=== PATIENT | female | born 1990 | race Caucasian/White ===

== ENCOUNTER 2018-05-09 12:29 | Observation (INO) | payer OTHER ==
[2018-05-09] MEDS: ONDANSETRON 4 MG INJ IV ×3 (13:24→22:38)
[2018-05-09] MEDS: HYDROmorphONE 0.5 MG/0.5 ML SYG IV ×5 (13:24→23:45)
[2018-05-09] MEDS: SOD CHLORIDE 0.9% 1,000 ML IV (13:25)
[2018-05-09 13:30] LABS: ADD MAN DIFF? NO
[2018-05-09 13:33] LABS: BASOPHILS % 0.4 % (0.0-2.0); EOSINOPHILS % 0.1 % (0.0-7.0); HEMATOCRIT 40.3 % (37.0-47.0); HEMOGLOBIN 14.1 g/dl (12.0-16.0); LYMPHOCYTES # 1.7 10^3/ul (0.8-2.9); LYMPHOCYTES % 18.1 % (15.0-51.0); MEAN CORPUSCULAR HEMOGLOBIN 31.9 pg (29.0-33.0); MEAN CORPUSCULAR VOLUME 91.2 fl (82.0-101.0); MEAN PLATELET VOLUME 9.2 fl (7.4-10.4); MONOCYTE # 0.5 10^3/ul (0.3-0.9); MONOCYTES % 5.2 % (0.0-11.0); NEUTROPHIL # 7.1 10^3/ul (1.6-7.5); PLATELET COUNT 296 10^3/UL (140-415); RED BLOOD COUNT 4.42 10^6/ul (4.20-5.40); RED CELL DISTRIBUTION WIDTH 11.9 % (11.5-14.5)
[2018-05-09 13:33] LABS: WHITE BLOOD COUNT 9.3 10^3/ul (4.8-10.8)
[2018-05-09 13:45] LABS: ANION GAP 15 (8-16); BLOOD UREA NITROGEN 10 mg/dl (7-20); CALCIUM 9.4 mg/dl (8.4-10.2); CARBON DIOXIDE 26 mmol/L (21-31); CHLORIDE 101 mmol/L (97-110); CREATININE 0.78 mg/dl (0.44-1.00); GLUCOSE 87 mg/dl (70-220); POTASSIUM 3.7 mmol/L (3.5-5.1); SODIUM 138 mmol/L (135-144)
[2018-05-09 13:52] LABS: INR 0.87; PROTIME 11.9 Sec (11.9-14.9); PT RATIO 0.9
[2018-05-09 13:53] LABS: PARTIAL THROMBOPLASTIN TIME 31.2 Sec (25.0-35.0)
[2018-05-09] MEDS: METOCLOPRAMIDE 10 MG INJ IV ×2 (14:08→14:23)
[2018-05-09] MEDS ORDERED: ACETAMINOPHEN 325 MG TAB PO (18:00)
[2018-05-09] MEDS ORDERED: ONDANSETRON 4 MG INJ IV (18:00)
[2018-05-09] MEDS ORDERED: BISACODYL (EC) 5 MG TAB PO (20:30)
[2018-05-09] MEDS ORDERED: clonAZEPAM 0.5 MG TAB PO (22:00)
[2018-05-10] MEDS: HYDROmorphONE 2 MG TAB PO ×3 (02:25→11:53)
[2018-05-10] MEDS: ONDANSETRON 4 MG INJ IV ×3 (04:51→15:11)
[2018-05-10] MEDS: HYDROmorphONE 0.5 MG/0.5 ML SYG IV ×2 (04:51→09:05)
[2018-05-10 07:48] LABS: ADD MAN DIFF? NO
[2018-05-10 07:52] LABS: BASOPHILS % 0.5 % (0.0-2.0); EOSINOPHILS % 0.7 % (0.0-7.0); HEMATOCRIT 37.7 % (37.0-47.0); HEMOGLOBIN 13.1 g/dl (12.0-16.0); LYMPHOCYTES # 1.6 10^3/ul (0.8-2.9); LYMPHOCYTES % 25.7 % (15.0-51.0); MEAN CORPUSCULAR HEMOGLOBIN 32.2 pg (29.0-33.0); MEAN CORPUSCULAR HGB CONC 34.7 g/dl (32.0-37.0); MEAN CORPUSCULAR VOLUME 92.6 fl (82.0-101.0); MEAN PLATELET VOLUME 8.9 fl (7.4-10.4); MONOCYTE # 0.3 10^3/ul (0.3-0.9); MONOCYTES % 5.6 % (0.0-11.0); NEUTROPHIL # 4.1 10^3/ul (1.6-7.5); NEUTROPHILS % 67.3 % (39.0-77.0); PLATELET COUNT 252 10^3/UL (140-415); RED BLOOD COUNT 4.07 10^6/ul (4.20-5.40); RED CELL DISTRIBUTION WIDTH 11.9 % (11.5-14.5)
[2018-05-10 07:52] LABS: WHITE BLOOD COUNT 6.1 10^3/ul (4.8-10.8)
[2018-05-10] MEDS: FLUOXETINE 20 MG CAP PO (08:22)
[2018-05-10] MEDS: BUPROPION (XL) 150 MG TAB PO (08:24)
[2018-05-10 08:30] LABS: ANION GAP 14 (8-16); BLOOD UREA NITROGEN 9 mg/dl (7-20); CALCIUM 8.8 mg/dl (8.4-10.2); CARBON DIOXIDE 28 mmol/L (21-31); CHLORIDE 100 mmol/L (97-110); CREATININE 0.69 mg/dl (0.44-1.00); GLUCOSE 56 mg/dl (70-220); POTASSIUM 4.1 mmol/L (3.5-5.1); SODIUM 138 mmol/L (135-144)
[2018-05-10] MEDS: VENLAFAXINE (XR) 75 MG CAP PO (11:53)
[2018-05-10] MEDS ORDERED: IBUPROFEN 400 MG TAB PO (14:30)
[2018-05-10] MEDS: KETOROLAC 15 MG INJ IV ×2 (15:05→21:13)
[2018-05-10] MEDS: traMADol 50 MG TAB PO (18:40)
[2018-05-11] MEDS: KETOROLAC 15 MG INJ IV ×3 (04:41→17:55)
[2018-05-11] MEDS: traMADol 50 MG TAB PO ×2 (07:44→13:47)
[2018-05-11] MEDS: GABAPENTIN 300 MG CAP PO ×2 (08:04→12:47)
[2018-05-11] MEDS: BUPROPION (XL) 150 MG TAB PO (08:04)
[2018-05-11] MEDS: ACETAMINOPHEN 325 MG TAB PO (09:23)
== END 2018-05-11 19:05 | disposition home or self-care (01) ==
LOC: 2NE 19:12 → E/R 12:29 → 2NE 17:45
DX: S00.83XD Contusion of other part of head, subsequent encounter (principal); Y08.89XD Assault by other specified means, subsequent encounter; Z76.5 Malingerer [conscious simulation]; F32.9 Major depressive disorder, single episode, unspecified
CPT/HCPCS: 36415; 70450; 70552; 80048; 85025; 85610; 85730; 96361; 96374; 96375; 96376; 99285-25; G0378

== ENCOUNTER 2018-10-25 09:13 | Observation (INO) | payer OTHER ==
[~2018-10-25 09:13] MED LIST: CEFAZOLIN 1 GM INJ; SEVOFLURANE 15 MIN
[2018-10-25] MEDS ORDERED: POLYMYXIN/BACITRACIN 1L IRRIG ×2 (11:30→11:47)
[2018-10-25] MEDS ORDERED: BACITRACIN 50000 UNITS INJ (11:48)
[2018-10-25] MEDS ORDERED: FENTAnyl 50 MCG/ML VIAL (11:53)
[2018-10-25] MEDS ORDERED: MIDAZOLAM 1 MG/ML 2 ML INJ ×2 (11:53→12:01)
[2018-10-25] MEDS ORDERED: PROPOFOL 40 ML (12:15)
[2018-10-25] MEDS ORDERED: ONDANSETRON 4 MG INJ (12:15)
[2018-10-25] MEDS ORDERED: DEXAMETHASONE 4 MG/ML 5 ML INJ (12:15)
[2018-10-25] MEDS ORDERED: FAMOTIDINE 20 MG INJ (12:15)
[2018-10-25] MEDS ORDERED: LIDOCAINE 2% (SDV) 5 ML INJ (12:15)
[2018-10-25] MEDS ORDERED: hydrALAzine 20 MG INJ IV (12:30)
[2018-10-25] MEDS ORDERED: LABETALOL HCL 20MG INJ IV (12:30)
[2018-10-25] MEDS ORDERED: ONDANSETRON 4 MG INJ IV (12:30)
[2018-10-25] MEDS ORDERED: OXYCODONE/ACETAMINOPHEN (5/325) TAB PO (12:30)
[2018-10-25] MEDS ORDERED: FENTAnyl 50 MCG/ML VIAL IV ×2 (12:30)
[2018-10-25] MEDS ORDERED: PROCHLORPERAZINE 10 MG INJ IV (12:30)
[2018-10-25] MEDS ORDERED: HYDROmorphONE 1 MG/5 ML IV SYRINGE IV ×2 (12:30)
[2018-10-25] MEDS ORDERED: MIDAZOLAM 1 MG/ML 2 ML INJ IV (12:30)
[2018-10-25] MEDS: POLYMYXIN B 500000 UNIT INJ (12:31)
[2018-10-25] MEDS: BACITRACIN 50000 UNITS INJ (12:31)
[2018-10-25] MEDS ORDERED: EPINEPHrine 1 MG INJ (13:12)
[2018-10-25] MEDS: ROPIVACAINE 0.5 % 30 ML VIAL (13:15)
[2018-10-25] MEDS ORDERED: HYDROmorphONE 2 MG/ML SYG (13:17)
[2018-10-25] MEDS ORDERED: LABETALOL HCL 20MG INJ (13:50)
[2018-10-25] MEDS: MEPERIDINE 25 MG INJ IV (14:13)
[2018-10-25] MEDS: FENTAnyl 50 MCG/ML VIAL IV (14:13)
[2018-10-25] MEDS: HYDROmorphONE 1 MG/5 ML IV SYRINGE IV (14:14)
[2018-10-25] MEDS: DIPHENHYDRAMINE 50 MG INJ IV (14:36)
[2018-10-25] MEDS: OXYCODONE/ACETAMINOPHEN (5/325) TAB PO ×2 (15:08→16:14)
[2018-10-25] MEDS ORDERED: DIPHENHYDRAMINE 50 MG INJ IV (17:30)
[2018-10-25] MEDS ORDERED: NACL 0.9% 3 ML SYG IV (17:30)
[2018-10-25] MEDS: DOCUSATE SODIUM 100 MG CAP PO (17:30)
[2018-10-25] MEDS ORDERED: MAGNESIUM HYDROXIDE 30ML CUP PO (17:30)
[2018-10-25] MEDS ORDERED: oxyCODONE 5 MG TAB PO (17:30)
[2018-10-25] MEDS ORDERED: NA PHOSPHATE/BIPHOS 133 ML ENEMA PR (17:30)
[2018-10-25] MEDS ORDERED: NALOXONE (0.4 MG/ML) INJ IV (17:30)
[2018-10-25] MEDS ORDERED: SENNA/DOCUSATE NA (8.6MG/50MG) TAB PO (17:30)
[2018-10-25] MEDS ORDERED: BISACODYL 10 MG SUPP PR (17:30)
[2018-10-25] MEDS: HYDROmorphONE 2 MG/ML SYG IV (17:59)
[2018-10-25] MEDS: ONDANSETRON 4 MG INJ IV (18:30)
[2018-10-25] MEDS: oxyCODONE 5 MG TAB PO ×2 (18:30→22:27)
[2018-10-25] MEDS: LACTATED RINGER'S 1,000 ML IV (20:47)
[2018-10-25] MEDS: ACETAMINOPHEN 1000MG/100ML IV 100 ML IVPB (20:47)
[2018-10-25] MEDS: GABAPENTIN 300 MG CAP PO (20:48)
[2018-10-25] MEDS: HYDROmorphONE 1 MG/ML SYG IV ×2 (20:49→23:51)
[2018-10-25] MEDS: CEFAZOLIN 2 GM/50 ML (PMX) 50 ML IVPB (21:05)
[2018-10-26] MEDS: oxyCODONE 5 MG TAB PO ×4 (02:25→14:01)
[2018-10-26] MEDS: HYDROmorphONE 1 MG/ML SYG IV ×4 (03:04→15:48)
[2018-10-26] MEDS: ACETAMINOPHEN 1000MG/100ML IV 100 ML IVPB ×3 (04:00→11:52)
[2018-10-26] MEDS: CEFAZOLIN 2 GM/50 ML (PMX) 50 ML IVPB ×2 (04:11→11:51)
[2018-10-26] MEDS: DOCUSATE SODIUM 100 MG CAP PO (09:33)
[2018-10-26] MEDS: ASPIRIN (EC) 81 MG TAB PO (09:33)
[2018-10-26] MEDS: DIAZEPAM 5 MG TAB PO (09:39)
[2018-10-26] MEDS: LACTATED RINGER'S 1,000 ML IV (09:46)
[2018-10-26] MEDS ORDERED: ACETAMINOPHEN 500 MG TAB PO (22:00)
[2018-10-27] MEDS ORDERED: PANTOPRAZOLE (EC) 40 MG TAB PO (06:00)
== END 2018-10-26 17:30 | disposition home or self-care (01) ==
LOC: SDS 09:13 → REC 16:23 → MS1 17:51
DX: T84.84XA Pain due to internal orthopedic prosthetic devices, implants and grafts, initial encounter (principal); Y83.8 Other surgical procedures as the cause of abnormal reaction of the patient, or of later complication, without mention of misadventure at the time of the procedure
CPT/HCPCS: 20680; 73590; 84703; 86850; 86900; 86901; 88300; 97116; 97161; 97530